=== PATIENT | female | born 1945 | race Caucasian/White ===

== ENCOUNTER 2021-09-24 10:53 | Emergency (ER) | payer MEDICARE, BC ==
[2021-09-24 11:56] LABS: ANION GAP 18.2 mmol/L (5-15)
[2021-09-24] MEDS ORDERED: Potassium Chloride 10 MEQ Tab.ER PO ONE (12:36)
== END 2021-09-24 12:49 | disposition home or self-care (01) ==
LOC: VM.ED 10:53
DX: U07.1 COVID-19 (principal); E78.00 Pure hypercholesterolemia, unspecified; I10 Essential (primary) hypertension; E11.9 Type 2 diabetes mellitus without complications; M19.90 Unspecified osteoarthritis, unspecified site; Z88.1 Allergy status to other antibiotic agents; Z79.899 Other long term (current) drug therapy; Z79.84 Long term (current) use of oral hypoglycemic drugs
CPT/HCPCS: 36415; 71045; 80053; 83735; 84484; 85025; 85379; 86140; 99283; 99284; A9270-GY